=== PATIENT | male | born 2000 | race Caucasian/White ===

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

== ENCOUNTER 2024-05-14 11:09 | Emergency (ER) | payer OTHER, BC ==
[~2024-05-14 11:09] MED LIST: Iopamidol-370 76% 500 ML MDV (1 ML CHARGE) ONE
[2024-05-14] MEDS ORDERED: Sodium Chloride 0.9% 100 ML ONE (11:15)
[2024-05-14] MEDS ORDERED: TETANUS, DIPHTHERIA TOX,ADULT (TDVAX) 0.5 ML VIAL IM ONE (11:15)
[2024-05-14] MEDS ORDERED: CEFAZOLIN 2 GM VIAL ONE (11:15)
[2024-05-14] MEDS ORDERED: Ondansetron PF 4 MG/2 ML Vial ONE (11:23)
[2024-05-14] MEDS ORDERED: fentaNYL 50 mcg/mL 1 mL Vial ONE (11:23)
[2024-05-14 11:31] LABS: #Basophils 0.06 10x3/uL (0.0-0.2); %Basophils 0.5 % (0.0-1.0); %Eosinophils 1.7 % (0.0-10.0); %Lymphocytes 41.7 % (21.0-51.0); %Monocytes 6.3 % (0.0-10.0); %Neutrophils 48.9 % (42.0-75.0); Hematocrit 45.6 % (42.0-52.0); Mean Corpuscular HGB CONC 32.9 g/dL (32.0-36.0); Mean Corpuscular Hemoglobin 29.1 pg (27.0-31.0); Mean Corpuscular Volume 88.5 fL (78.0-98.0); Platelet Count 337 10x3/uL (130-400); RBC Distribution Width 11.7 % (11.5-14.5); Red Blood Cell (RBC) Count 5.15 mill/uL (4.70-6.10)
[2024-05-14 11:48] LABS: INR-International Normal Ratio 1.1; PTT 28.1 sec (22.9-36.1); Prothrombin Time 14.3 sec (12.0-14.7)
[2024-05-14 11:52] LABS: Alcohol Less than 10.0 mg/dL (Less than 10)
[2024-05-14 11:54] LABS: ALT (SGPT) 17 U/L (8-55); AST (SGOT) 25 U/L (5-34); Alkaline Phosphatase 56 U/L (40-110); Anion Gap 12 mmol/L (10-20); BUN (Urea Nitrogen) 8 mg/dL (8.9-20.6); Bilirubin, Total 0.8 mg/dL (0.2-1.2); Calc. Creatinine Clearance 0 mL/min (70-130); Calcium 9.5 mg/dL (7.8-10.44); Carbon Dioxide 26 mmol/L (22-29); Chloride 102 mmol/L (98-107); Estimated GFR 101; Globulin 3.2 g/dL (2.4-3.5); Glucose 105 mg/dL (70-105); Lipase 21 U/L (8-78); Potassium 3.9 mmol/L (3.5-5.1); Protein, Total 7.2 g/dL (6.0-8.3); Sodium 136 mmol/L (136-145)
[2024-05-14 12:22] LABS: pH (venous) 7.358 (7.32-7.43)
[2024-05-14 12:23] LABS: Actual Bicarbonate (HCO3v) 25.6 mEq/L (22-28); Base Excess -0.3 mEq/L (-2.0 to +3.0); Hematocrit-VBG 43 % (42.0-52.0); Hemoglobin (Hb) 14.7 g/dL (13.2-17.3)
[2024-05-14 12:24] LABS: Sodium 138 mmol/L (133-146)
[2024-05-14 12:25] LABS: Calcium, Ionized (venous) 1.16 mmol/L (1.16-1.32); Chloride (VBG) 100 mmol/L (98-106); Potassium (VBG) 3.92 mmol/L (3.70-5.30)
[2024-05-14 15:07] LABS: Lactic Acid 1.1 mmol/L (0.5-2.2)
[2024-05-14] MEDS ORDERED: Bacitracin 1 PK ONE (16:18)
== END 2024-05-14 16:40 | disposition home or self-care (01) ==
LOC: ERS 11:09
DX: S02.40CA Maxillary fracture, right side, initial encounter for closed fracture (principal); S02.31XA Fracture of orbital floor, right side, initial encounter for closed fracture; S32.009A Unspecified fracture of unspecified lumbar vertebra, initial encounter for closed fracture; S50.11XA Contusion of right forearm, initial encounter; S50.312A Abrasion of left elbow, initial encounter; S50.311A Abrasion of right elbow, initial encounter; S80.212A Abrasion, left knee, initial encounter; S80.211A Abrasion, right knee, initial encounter; V89.2XXA Person injured in unspecified motor-vehicle accident, traffic, initial encounter; Y92.410 Unspecified street and highway as the place of occurrence of the external cause; Z23 Encounter for immunization
CPT/HCPCS: 36415; 70450; 70486; 71045; 71260; 72125; 72170; 74177; 80053; 80307; 82805; 83605; 83690; 85025; 85610; 85730; 90471; 90714; 94760; 96365; 96375; G0390; J2405; J3010; J3490; Q9967